=== PATIENT | female | born 1940 | race Caucasian/White ===

== ENCOUNTER 2024-02-17 20:52 | Outpatient (CLI) | payer MEDICARE, BC, SELFPAY | END 2024-02-17 20:53 | disposition home or self-care (01) | PROVIDERS: PCP Physician Assistant; Visit Provider Internal Medicine | DX: G47.33 Obstructive sleep apnea (adult) (pediatric) (principal) | CPT/HCPCS: 95810; A9270 ==

== ENCOUNTER 2024-04-16 09:26 | Outpatient (CLI) | payer MEDICARE, BC, OTHER, SELFPAY ==
--- NOTE | 2024-04-16 11:10 | W.ANESCHARGE ---
Anesthesia Charges Start Date/Time Anesthesia Start Date: 04/16/24 Anesthesia Start Time: 10:53 Stop Date/Time Anesthesia Stop Date: 04/16/24 Anesthesia Stop Time: 11:08 Summary Extremes of Age - Over 70 or under 1: BOAT JOINER Coding CPT Codes CPT Codes: ANES UPR GI NDSC PX NOS - 16239 ([id number]) P3 - PATIENT W/SEVERE SYS DISEASE, QX - BOAT JOINER SVC W/ MD MED DIRECTION, QK - SILK SCREEN CUTTER 2-4 CNCRNT ANES PROC Additional Codes: Summary - Extremes of Age - Over 70 or under 1: BOAT JOINER ([id number])
--- NOTE | 2024-04-16 11:35 | W.ANESCHARGE ---
Anesthesia Charges Start Date/Time Anesthesia Start Date: 04/16/24 Anesthesia Start Time: 10:53 Stop Date/Time Anesthesia Stop Date: 04/16/24 Anesthesia Stop Time: 11:08 Summary Extremes of Age - Over 70 or under 1: MDA Coding CPT Codes CPT Codes: ANES UPR GI NDSC PX NOS - 22315 ([id number]) QK - TOOL AND EQUIPMENT RENTAL CLERK 2-4 CNCRNT ANES PROC, QX - METAL TEMPLATE MAKER SVC W/ MD MED DIRECTION, P3 - PATIENT W/SEVERE SYS DISEASE Additional Codes: Summary - Extremes of Age - Over 70 or under 1: MDA ([id number])
== END 2024-04-16 09:27 | disposition home or self-care (01) ==
LOC: OP CLINIC 09:31
PROVIDERS: PCP Physician Assistant; Visit Provider Surgery
DX: R93.3 Abnormal findings on diagnostic imaging of other parts of digestive tract (principal); K31.89 Other diseases of stomach and duodenum
CPT/HCPCS: 00731; 43239; 88305; 99100; J2704; J3010